=== PATIENT | female | born 1955 | race Caucasian/White ===

== ENCOUNTER 2017-08-02 08:02 | Outpatient (CLI) | payer BC ==
[2017-08-02] MEDS ORDERED: Iopamidol 370 76% 100 ML VIAL ONE (11:45)
--- NOTE | 2017-08-02 12:57 | CT ---
POSTCONTRAST SOFT TISSUE NECK CT: Date: 08/02/17 HISTORY: Throat pain x2 months. Hoarseness. Difficulty swallowing. COMPARISON: None. TECHNIQUE: Postcontrast soft tissue neck CT is performed in the axial plane. Reformatted images are submitted fo r interpretation. FINDINGS: Visualized brain parenchyma is unremarkable. There is adequate aeration of the visualized sinuses and mastoid air cells. Symmetric attenuation of the visualized muscles of mastication. Aerodigestive tract appears to be patent. There is mild fullness at the level of the left and right p alatine tonsil. There is mild narrowing of the airway. Obvious peritonsillar abscess is not appreciat ed. Epiglottis has a normal caliber. Preepiglottic fat is preserved. No masses in the oral cavity. Evaluation is limited by dental amalgam artifact. Midline fatty raphe o f the tongue is preserved. Supraglottic, glottic, and subglottic larynx is unremarkable. Symmetric attenuation of the sternocleidomastoid muscles. Symmetric attenuation of the parotid and submandibular glands. Scattered nonspecific, bilateral soft tissue neck lymph nodes. Thyroid gland is unremarkable. Grossly, the great vessels of the neck are patent. No prevertebral soft tissue swelling. Cervical spine vertebral body height is maintained. No fracture . No high grade central canal stenosis or high grade foraminal narrowing. Lung apices demonstrate chronic change. Upper mediastinum is unremarkable. IMPRESSION: Mild fullness of the left and right palatine tonsils, nonspecific. There is associated mild narrowing of the aerodigestive tract. Direct visualization is recommended. POS: [facility]
== END 2017-08-02 08:03 | disposition home or self-care (01) ==
LOC: CT 08:02
PROVIDERS: ATTEND Anesthesiology Pain Medicine
DX: K22.8 Other specified diseases of esophagus (principal); J35.8 Other chronic diseases of tonsils and adenoids
CPT/HCPCS: 70491

== ENCOUNTER 2017-08-24 06:59 | Emergency (ER) | payer BC ==
[2017-08-24] MEDS ORDERED: Dexamethasone 4 mg/ml Vial ONE (08:42)
--- NOTE | 2017-08-24 09:52 | RAD ---
RADIOGRAPH CHEST 2 VIEWS: Date: 08/24/17 Time: 1013 HOURS HISTORY: 61-year-old female with cough for 1 day. COMPARISON: None available. FINDINGS: The lungs are hypoinflated, which makes this a limited study. There is a questionable mild posterobas ilar left lower lobe infiltrate. No pleural effusion. Ectasia and tortuosity of thoracic aorta. Cardi ac size appears enlarged, but this could be in part due to the hypoinflation. The right lung and left upper lobe appear to be clear. No pneumothorax or pulmonary edema. There are dorsal column spinal co rd stimulator leads in the mid thoracic spine. IMPRESSION: 1. Limited study due to hypoinflated lungs. 2. Questionable left lower lobe infiltrate. 3. Dorsal column stimulator leads in thoracic spine. 4. Ectasia and tortuosity of the thoracic aorta. 5. Questionable mild cardiomegaly. JN [] POS: [facility]
== END 2017-08-24 10:11 | disposition home or self-care (01) ==
LOC: ERS 06:59
DX: J18.9 Pneumonia, unspecified organism (principal); J06.9 Acute upper respiratory infection, unspecified
CPT/HCPCS: 71046; 87081; 87430; 94640; J1100

== ENCOUNTER 2017-11-15 08:46 | Outpatient (CLI) | payer BC | END 2017-11-15 08:47 | disposition home or self-care (01) | LOC: BICCT 08:46 | PROVIDERS: ATTEND Anesthesiology Pain Medicine | DX: M48.02 Spinal stenosis, cervical region (principal); M47.892 Other spondylosis, cervical region | CPT/HCPCS: 72125 ==

== ENCOUNTER 2018-05-09 09:44 | Outpatient (CLI) | payer BC | END 2018-05-09 09:45 | disposition home or self-care (01) | LOC: DTY/OP 09:44 | PROVIDERS: ATTEND Surgery | DX: E66.01 Morbid (severe) obesity due to excess calories (principal) | CPT/HCPCS: 97802 ==

== ENCOUNTER 2018-07-18 11:21 | Outpatient (CLI) | payer BC, OTHER ==
[2018-07-18 12:13] LABS: #Basophils 0.1 thou/uL (0.0-0.2); #Eosinphils 0.2 thou/uL (0.0-0.7); #Lymphocytes 1.3 thou/uL (1.20-3.40); #Monocytes 0.4 thou/uL (0.11-0.59); #Neutrophils 2.3 thou/uL (1.40-6.50); %Basophils 1.9 % (0.0-1.0); %Eosinophils 3.8 % (0.0-10.0); %Lymphocytes 30.5 % (21.0-51.0); %Monocytes 8.8 % (0.0-10.0); Hemoglobin 15.3 g/dL (12.0-16.0); Mean Corpuscular HGB CONC 34.3 g/dL (32.0-36.0); Mean Corpuscular Volume 96.2 fL (78.0-98.0); Mean Platelet Volume 8.2 fL (7.4-10.4); Platelet Count 278 thou/uL (130-400); RBC Distribution Width 11.6 % (11.5-14.5); Red Blood Cell (RBC) Count 4.62 mill/uL (4.20-5.40); White Blood Cell (WBC) Count 4.3 thou/uL (4.8-10.8)
[2018-07-18 12:39] LABS: ALT (SGPT) 43 U/L (8-55); AST (SGOT) 33 U/L (5-34); Albumin 4.6 g/dL (3.5-5.0); Alkaline Phosphatase 90 U/L (40-150); Anion Gap 9 mmol/L (10-20); BUN (Urea Nitrogen) 16 mg/dL (9.8-20.1); Bilirubin, Direct 0.5 mg/dL (0.1-0.3); Bilirubin, Total 1.5 mg/dL (0.2-1.2); Calc. Creatinine Clearance 0 mL/min (70-130); Calcium 10.1 mg/dL (7.8-10.44); Carbon Dioxide 31 mmol/L (22-29); Chloride 106 mmol/L (98-107); Estimated GFR-MDRD 78; Globulin 2.5 g/dL (2.4-3.5); Glucose 91 mg/dL (70-105); Potassium 3.6 mmol/L (3.5-5.1); Protein, Total 7.1 g/dL (6.0-8.3); Sodium 142 mmol/L (136-145)
--- NOTE | 2018-07-18 13:17 | RAD ---
CHEST TWO VIEWS: HISTORY: Preoperative chest radiograph prior to surgical intervention. COMPARISON: 08/24/2017 TECHNIQUE: PA and lateral views of the chest are obtained. FINDINGS: Two views of the chest demonstrate a dorsal column stimulator in place. There is a calcified density in the right upper quadrant of the abdomen, possibly representing a larg e gallstone. The lungs are well aerated. No evidence of active intrathoracic disease is seen. No evidence of eff usions, pneumonia, or pneumothorax is seen. IMPRESSION: Unremarkable two views chest. POS: [facility]
--- NOTE | 2018-07-19 22:00 | EKG ---
Test Reason : Blood Pressure : / mmHG Vent. Rate : 052 BPM Atrial Rate : 052 BPM P-R Int : 188 ms QRS Dur : 080 ms QT Int : 440 ms P-R-T Axes : 044 083 040 degrees QTc Int : 409 ms Sinus bradycardia Nonspecific T wave abnormality Abnormal ECG When compared with ECG of 09-NOV-2010 12:30, Questionable change in QRS axis Nonspecific T wave abnormality has replaced inverted T waves in Inferior leads Confirmed by Meeta ROD ([id number]) on 07/19/2018 9:59:47 PM Referred By: TONY Confirmed By:Meeta ROD
== END 2018-07-18 11:22 | disposition home or self-care (01) ==
LOC: LABBT 11:21
PROVIDERS: ATTEND Surgery
DX: Z01.818 Encounter for other preprocedural examination (principal); K80.20 Calculus of gallbladder without cholecystitis without obstruction; E66.01 Morbid (severe) obesity due to excess calories
CPT/HCPCS: 71046; 80053; 80076; 85025; 93005; 93010

== ENCOUNTER 2018-07-27 06:43 | Inpatient (IN) | payer BC, OTHER ==
[2018-07-18 11:25] VITALS: BMI 37.3
[2018-07-27] MEDS ORDERED: Heparin 5,000 UNITS/ML VIAL ONE (08:40)
[2018-07-27] MEDS ORDERED: CEFAZOLIN 2 GM/50 ML BAG ONE (08:40)
[2018-07-27] MEDS ORDERED: PROPOFOL 200 MG/20 ML VIAL ONE (09:50)
[2018-07-27] MEDS ORDERED: Lidocaine 1% PF 5 ML VIAL ONE (09:50)
[2018-07-27] MEDS ORDERED: ePHEDrine/0.9% NaCl/PF SYRINGE 50 mg/10 ml ONE (09:50)
[2018-07-27] MEDS ORDERED: Glycopyrrolate 0.2 MG/ML 5 ML SYRINGE ONE (09:50)
[2018-07-27] MEDS ORDERED: Ketorolac Tromethamine 30 MG/ML VIAL ONE (09:50)
[2018-07-27] MEDS ORDERED: Dexamethasone 20 MG/5 ML VIAL ONE (09:50)
[2018-07-27] MEDS ORDERED: Metoclopramide HCl 10 MG/2 ML VIAL ONE (09:50)
[2018-07-27] MEDS ORDERED: Ondansetron PF 4 MG/2 ML Vial ONE (09:50)
[2018-07-27] MEDS ORDERED: Bupivacaine/Epinephrine 0.25% 30 ML VIAL ONE (09:51)
[2018-07-27] MEDS ORDERED: Midazolam HCl 2 mg/2 ml Vial ONE (09:52)
[2018-07-27] MEDS ORDERED: Fentanyl 100 MCG/2 ML VIAL ONE (09:55)
[2018-07-27] MEDS ORDERED: Iothalamate Meglumine 60% 50 ML VIAL FS ONE (09:56)
[2018-07-27] MEDS ORDERED: Promethazine HCl 25 MG/ML VIAL SLOW IVP PRN (10:43)
[2018-07-27] MEDS ORDERED: Promethazine HCl 25 MG/ML VIAL IM PRN ×3 (10:43→11:39)
[2018-07-27] MEDS ORDERED: Ondansetron HCl/PF 4 MG/2 ML Vial IVP PRN (10:43)
[2018-07-27] MEDS ORDERED: Naloxone HCl 0.4 mg/ml Vial IV PRN (10:44)
[2018-07-27] MEDS ORDERED: Zolpidem Tartrate 5 MG TAB PO PRN (10:44)
[2018-07-27] MEDS ORDERED: HYDROmorphone 10 mg/100 ml CADD IVPB PRN (10:44)
[2018-07-27] MEDS ORDERED: diphenhydrAMINE 50 MG/ML VIAL IVP PRN ×2 (10:44→11:39)
[2018-07-27] MEDS ORDERED: diphenhydrAMINE 25 MG CAP PO PRN (10:44)
[2018-07-27] MEDS ORDERED: diphenhydrAMINE 50 MG/ML VIAL IM PRN (10:44)
[2018-07-27] MEDS ORDERED: Ondansetron PF 4 MG/2 ML Vial IVP PRN ×2 (10:44→11:39)
[2018-07-27] MEDS ORDERED: Communication Order-Pharmacy FS SCH (10:45)
[2018-07-27] MEDS ORDERED: Dextrose 50% Abboject 50 ML SYRINGE SLOW IVP PRN (11:39)
[2018-07-27] MEDS ORDERED: Dextrose 5% in Water 1,000 ML IV PRN (11:39)
[2018-07-27] MEDS ORDERED: hydrALAZINE 20 MG/ML VIAL SLOW IVP PRN (11:39)
[2018-07-27] MEDS ORDERED: CEFAZOLIN/Water 2 GM/20 ML SYRINGE SLOW IVP SCH (11:45)
--- NOTE | 2018-07-27 12:56 | RAD ---
INTRAOPERATIVE CHOLANGIOGRAM: DATE: 07/27/2018. COMPARISON: None. HISTORY: Cholecystectomy. FINDINGS: Two intraoperative images are provided. Images demonstrate contrast media within the duodenum. Ther e is also contrast media within the common bile duct and intrahepatic biliary ducts in the region of the hilum. No filling defect is seen within the opacified portion of the common bile duct. Distalmo st aspect of CBD is not opacified. IMPRESSION: No filling defect seen within the opacified biliary ducts. POS: [facility]
[2018-07-27] MEDS: Ketorolac Tromethamine 30 MG/ML VIAL IVP SCH ×2 (13:29→17:01)
[2018-07-27] MEDS: D5 1/2 NS w/20 mEq KCL 1,000 ML IV SCH ×2 (13:29→17:01)
[2018-07-27] MEDS: CEFAZOLIN 2 GM/50 ML-DEXTROSE 2 GM in Premix Bag 1 BAG IVPB SCH (17:01)
[2018-07-28] MEDS: Ketorolac Tromethamine 30 MG/ML VIAL IVP SCH ×3 (01:07→12:31)
[2018-07-28] MEDS: CEFAZOLIN 2 GM/50 ML-DEXTROSE 2 GM in Premix Bag 1 BAG IVPB SCH (01:08)
--- NOTE | 2018-07-28 03:50 | OP ---
DATE OF PROCEDURE: 07/27/2018 PREOPERATIVE DIAGNOSES: Morbid obesity, symptomatic cholelithiasis with elevated bilirubin. PROCEDURES PERFORMED: Laparoscopic cholecystectomy with intraoperative cholangiogram, laparoscopic sleeve gastrectomy, and esophagogastroscopy. INDICATIONS: This is a 62-year-old female, who is morbidly obese, who has also been having episodic right upper quadrant pain. Ultrasound showed cholelithiasis and her bilirubin was mildly elevated. FINDINGS: She had a single large gallstone. Cholangiogram was negative. A 38-Martiniquais bougie was used for the sleeve procedure. PROCEDURE IN DETAIL: After informed consent was obtained, the patient was taken to the operating room and given general endotracheal anesthesia. She was placed in the supine position. Her abdomen was prepped and draped in the usual fashion. Local anesthesia was infiltrated subcutaneously and deep. A 12-mm incision was performed approximately 8 inches below the xiphoid slightly to the left. Veress needle was inserted. Drop test was performed. Pneumoperitoneum was created to a volume of 2 L of carbon dioxide. Utilizing a bladeless 12-mm trocar and 0-degree laparoscope, direct visual entry into the abdominal cavity was performed. Pneumoperitoneum was then created to a pressure of 15 mmHg, and the patient was placed in steep reverse Trendelenburg position. Syed liver retractor was inserted. The left lobe of the liver was retracted superiorly. The pylorus was identified. A 12-mm port was placed on the right beneath it and two 12s placed left subcostal. The omentum was taken off the greater curvature 5 cm from the pylorus utilizing the LigaSure. Short gastrics were divided with a LigaSure LigaSure. A 38-Martiniquais bougie was inserted and directed into the antrum. The linear 60 mm green load stapler was used to divide the antrum to the bougie, gold load along the bougie, and a series of blue through the angle of His. At this point, two 5-mm ports were placed subcostally. The gallbladder was grasped and advanced superiorly. The peritoneum was dissected off the cystic duct and artery. A clip was placed at the base of the cystic duct. Arrow cholangiocatheter was inserted. Intraoperative cholangiogram was performed. This showed free flow into the duodenum. No filling defects. The duct was triply ligated with hemoclips and divided. The artery was triply ligated with hemoclips and divided. The gallbladder was removed from its fossa utilizing electrocautery. At this point, intraoperative endoscopy was performed. The video endoscope was inserted under direct vision and advanced into the sleeve. The staple line was inspected, there was no bleeding. Staple line was then tested by inflating the stomach with pressurized air into water, there was no air leak. Stomach was decompressed. Scope was removed. The remnants of the stomach and the gallbladder were removed from the left lateral port site. The fascia was closed with 0 Vicryl suture and the GraNee needle. Trocars and retractors were removed. The skin was closed with interrupted 4-0 Rapide. Dermabond was applied. The patient tolerated the procedure well and was transferred to recovery in good condition. Sponge and needle count were verified correct x2. Job ID: [id number]
[2018-07-28] MEDS: D5 1/2 NS w/20 mEq KCL 1,000 ML IV SCH ×2 (04:21→12:31)
[2018-07-28 06:36] LABS: #Lymphocytes 1.2 thou/uL (1.20-3.40); #Monocytes 0.6 thou/uL (0.11-0.59); #Neutrophils 5.4 thou/uL (1.40-6.50); %Basophils 0.5 % (0.0-1.0); %Eosinophils 0.3 % (0.0-10.0); %Lymphocytes 16.8 % (21.0-51.0); %Monocytes 7.8 % (0.0-10.0); %Neutrophils 74.6 % (42.0-75.0); Hemoglobin 13.1 g/dL (12.0-16.0); Mean Corpuscular HGB CONC 34.3 g/dL (32.0-36.0); Mean Corpuscular Hemoglobin 33.3 pg (27.0-31.0); Mean Platelet Volume 8.4 fL (7.4-10.4); Platelet Count 228 thou/uL (130-400); RBC Distribution Width 11.4 % (11.5-14.5); Red Blood Cell (RBC) Count 3.94 mill/uL (4.20-5.40); White Blood Cell (WBC) Count 7.3 thou/uL (4.8-10.8)
[2018-07-28 06:55] LABS: Anion Gap 8 mmol/L (10-20); BUN (Urea Nitrogen) 8 mg/dL (9.8-20.1); Calc. Creatinine Clearance 117 mL/min (70-130); Carbon Dioxide 27 mmol/L (22-29); Chloride 107 mmol/L (98-107); Estimated GFR-MDRD 85; Glucose 139 mg/dL (70-105); Potassium 3.7 mmol/L (3.5-5.1); Sodium 138 mmol/L (136-145)
--- NOTE | 2018-07-28 08:54 | RAD ---
LIMITED UPPER GI WITH 15 ML SINGLE SIP GASTROGRAFIN: HISTORY: Postop vertical sleeve gastrectomy and cholecystectomy. FINDINGS: There is prompt passage of the 15 mL oral Gastrografin administered under fluoroscopy from the esopha alivia into the stomach. No contrast extravasation is seen. IMPRESSION: No evidence of obstruction or leak. POS: [facility]
[2018-07-28] MEDS ORDERED: Enoxaparin Sodium 40 MG/0.4 ML SYRINGE SC SCH (09:00)
[2018-07-28] MEDS ORDERED: Pantoprazole 40 MG VIAL IVP SCH (09:00)
[2018-07-28] MEDS ORDERED: Hydrocodone-Acetamin 15 ML UDCUP PO PRN (11:39)
[2018-07-28 12:27] VITALS: BP 123/68; TEMP 97.7
--- NOTE | 2018-07-28 12:34 | DIS ---
DATE OF ADMISSION: 07/27/2018 DATE OF DISCHARGE: 07/28/2018 DISCHARGE DIAGNOSES: 1. Morbid obesity. 2. Symptomatic cholelithiasis. PROCEDURES DURING ADMISSION: 1. Laparoscopic cholecystectomy with intraoperative cholangiogram. 2. Sleeve gastrectomy. 3. Esophagogastroscopy. 4. Postoperative Gastrografin swallow. HOSPITAL COURSE: The patient was admitted and taken to the operating room, where she underwent a sleeve gastrectomy and laparoscopic cholecystectomy. Postoperatively, she has done well. She is tolerating liquids well. Her x-ray was fine. She was discharged home in good condition on hydrocodone and Zofran. She will follow up with me in 2 weeks. Job ID: [id number]
== END 2018-07-28 12:27 | disposition home or self-care (01) | DRG 621 ==
LOC: SDC 06:43 → SURG B 11:40
PROVIDERS: ADMIT Surgery; ATTEND Surgery
PROC: 0DB64Z3 Excision of Stomach, Percutaneous Endoscopic Approach, Vertical (ICD-10-PCS; principal; 2018-07-27)
PROC: 0FT44ZZ Resection of Gallbladder, Percutaneous Endoscopic Approach (ICD-10-PCS; 2018-07-27)
PROC: BF0CYZZ Plain Radiography of Hepatobiliary System, All using Other Contrast (ICD-10-PCS; 2018-07-27)
PROC: 0DJ68ZZ Inspection of Stomach, Via Natural or Artificial Opening Endoscopic (ICD-10-PCS; 2018-07-27)
PROC: BD12YZZ Fluoroscopy of Stomach using Other Contrast (ICD-10-PCS; 2018-07-28)
DX: E66.01 Morbid (severe) obesity due to excess calories (principal); K80.20 Calculus of gallbladder without cholecystitis without obstruction; Z68.37 Body mass index [BMI] 37.0-37.9, adult; I10 Essential (primary) hypertension; K21.9 Gastro-esophageal reflux disease without esophagitis; N32.81 Overactive bladder
CPT/HCPCS: 36415; 47532; 74241; 80048; 85025; 88304; 88307; 88312; 94760; C9113; J1100; J1644; J1650; J1885; J2001; J2250; J2405; J2704; J2765; J3010; Q9961

== ENCOUNTER 2019-02-01 09:46 | Outpatient (CLI) | payer BC ==
--- NOTE | 2019-02-01 10:07 | MMO ---
Bilateral MAMMO Bilat Screen [facility]. CLINICAL HISTORY: Patient is 63 years old and is seen for screening. The patient has the following family history of breast cancer: maternal aunt, 40's. The patient has no personal history of cancer. VIEWS: The views performed were: bilateral craniocaudal with tomosynthesis and bilateral mediolateral oblique with tomosynthesis. FILMS COMPARED: The present examination has been compared to prior imaging studies performed at [facility] on 01/11/2014, 02/13/2015, 03/03/2016 and 06/27/2017. MAMMOGRAM FINDINGS: There are scattered fibroglandular densities. There is a small focal density in the left upper outer breast. In the right breast, there are no suspicious masses, calcifications or areas of architectural distortion. IMPRESSION: FINDING IN THE LEFT BREAST REQUIRES ADDITIONAL EVALUATION. SPOT COMPRESSION IS RECOMMENDED. AN ULTRASOUND EXAM IS RECOMMENDED IF NEEDED. ADDITIONAL IMAGING. THE RESULTS OF THIS EXAM WERE SENT TO THE PATIENT. ACR BI-RADS Category 0 - Incomplete: Need additional imaging evaluation. [facility] will notify the patient of the need for additional imaging services. MAMMOGRAPHY NOTE: 1. A negative mammogram report should not delay a biopsy if a dominant of clinically suspicious mass is present. 2. Approximately 10% to 15% of breast cancers are not detected by mammography. 3. Adenosis and dense breasts may obscure an underlying neoplasm.
== END 2019-02-01 09:47 | disposition home or self-care (01) ==
LOC: BICMAMMO 09:46
PROVIDERS: ATTEND Family Medicine
DX: Z12.31 Encounter for screening mammogram for malignant neoplasm of breast (principal); Z80.3 Family history of malignant neoplasm of breast
CPT/HCPCS: 77063; 77067

== ENCOUNTER 2019-02-05 09:26 | Outpatient (CLI) | payer BC ==
--- NOTE | 2019-02-05 13:22 | MMO ---
Left Breast MAMMO Unilat Diag [facility]DI [facility]HELY. CLINICAL HISTORY: Patient is 63 years old and is seen for additional evaluation requested from prior study. The patient has the following family history of breast cancer: maternal aunt, 40's. The patient has no personal history of cancer. VIEWS: The views performed were: left craniocaudal spot compression with tomosynthesis; left mediolateral oblique spot compression with tomosynthesis; and left mediolateral with tomosynthesis. FILMS COMPARED: The present examination has been compared to prior imaging studies performed at [facility] on 02/13/2015, 03/03/2016, 06/27/2017 and 02/01/2019. MAMMOGRAM FINDINGS: There are scattered fibroglandular densities. Additional views were performed. The previously seen abnormality is not definitely seen on the current study. There are no suspicious masses, suspicious calcifications, or new areas of architectural distortion. IMPRESSION: THERE IS NO MAMMOGRAPHIC EVIDENCE OF MALIGNANCY. A ROUTINE FOLLOW-UP MAMMOGRAM IN 1 YEAR IS RECOMMENDED. THE RESULTS OF THIS EXAM WERE SENT TO THE PATIENT. ACR BI-RADS Category 2 - Benign finding MAMMOGRAPHY NOTE: 1. A negative mammogram report should not delay a biopsy if a dominant of clinically suspicious mass is present. 2. Approximately 10% to 15% of breast cancers are not detected by mammography. 3. Adenosis and dense breasts may obscure an underlying neoplasm.
== END 2019-02-05 09:27 | disposition home or self-care (01) ==
LOC: BICMAMMO 09:26
PROVIDERS: ATTEND Family Medicine
DX: R92.2 Inconclusive mammogram (principal); Z80.3 Family history of malignant neoplasm of breast
CPT/HCPCS: G0279

== ENCOUNTER 2019-07-24 06:38 | Day surgery (SDC) | payer BC ==
[2019-07-23 08:56] VITALS: BMI 28.7
[2019-07-24 07:34] VITALS: BP 149/77; TEMP 97.8
--- NOTE | 2019-07-24 09:54 | RAD ---
CERVICAL MYELOGRAM: HISTORY: Cervical stenosis. Neck pain. EXPOSURE: 0.6 minutes 132.1 microgray per m2 FINDINGS: Initial two view systems checkout mechanic lumbar spine radiograph demonstrates bilateral transpedicular screws at L5 and S1. There does appear to be perihardware lucency involving bilateral transpedicular screws at S1. There is a disc prosthesis. There is 4.3 mm of anterolisthesis of L5 upon S1. There is 4 mm of anter olisthesis of L4 upon L5. Dorsal column stimulator is partially better evaluated. Two view cervical spine: Predental space is normal. No prevertebral soft tissue swelling. Cervical sp ine vertebral body height is maintained. No fractures. Straightening of cervical lordosis may be positional. Successful lumbar puncture at the L3-L4 level. A total of 9 cc of Isovue-M 300 contrast was administe red intrathecally. No immediate post procedure complication. TECHNIQUE: Consent obtained to perform a lumbar puncture for intrathecal contrast administration. The patient's back was evaluated. The L3-L4 level was deemed appropriate. The skin was prepped and draped in a sterile fashion and 1% lidocaine buffered with sodium bicarbonate was used for local anesthesia. Unde r fluoroscopic guidance, a 22 gauge spinal needle was advanced into the CSF space and via a short tubing catheter a total of 9 mL of Isovue-M 300 contrast was administered intrathecally. The patient tolerated the procedure well. No immediate or post procedural complications. IMPRESSION: Successful lumbar puncture for cervical myelogram. Transcribed Date/Time: 07/24/2019 10:15 AM
--- NOTE | 2019-07-24 10:00 | CT ---
POST MYELOGRAM CERVICAL SPINE CT: HISTORY: Cervical spinal stenosis. Neck pain. COMPARISON: None. TECHNIQUE: Cervical spine CT is performed in the axial length. Three-dimensional reformatted images are submitte d. FINDINGS: Straightening of cervical lordosis is felt to be positional. No craniocervical dissociation. Cervical spine vertebral body height is maintained. No fracture. Appropriate alignment of the lateral masses of C1 and C2 as well as the facets. Intact odontoid process. Soft tissue neck structures are unremarkable. Upper mediastinum and lung apices do not demonstrate an y acute abnormality. Patchy ground glass opacities in the visualized lung parenchyma are nonspecific. C2-C3: Minimal central disc bulge. No significant central canal stenosis or significant neural forami nal narrowing. C3-C4: Broad-based disc bulge does make contact with the thecal sac and nearly effaces subarachnoid s pace centrally secondary to a focal disc protrusion. Mild central canal stenosis. Bilaterally the neural foramina are patent. C4-C5:Broad-based disc bulge abuts the thecal sac. Subarachnoid space is maintained. No significant c entral canal stenosis or significant neural foraminal narrowing. C5-C6: Small left paracentral disc bulge. Mild central canal stenosis. Bilaterally the neural foramin a are patent. C6-C7:Broad-based disc osteophyte complex without significant central canal stenosis. Right neural fo ramen is patent. Mild left foraminal narrowing due to uncovertebral hypertrophy. C7-T1: No significant canal stenosis or significant neural foraminal narrowing. IMPRESSION: Degenerative changes of the cervical spine as described above. No evidence of significant central can al stenosis or significant neural foraminal narrowing. Transcribed Date/Time: 07/24/2019 10:14 AM
[2019-07-24] MEDS ORDERED: Iopamidol-M 300 61% 15 ML VIAL ONE (11:10)
== END 2019-07-24 09:50 | disposition home or self-care (01) ==
LOC: RAD 06:38
PROVIDERS: ATTEND Anesthesiology Pain Medicine
PROC: B02B1ZZ Computerized Tomography (CT Scan) of Spinal Cord using Low Osmolar Contrast (ICD-10-PCS; principal; 2019-07-24)
DX: M48.02 Spinal stenosis, cervical region (principal); M47.22 Other spondylosis with radiculopathy, cervical region; M48.062 Spinal stenosis, lumbar region with neurogenic claudication; M43.17 Spondylolisthesis, lumbosacral region; I10 Essential (primary) hypertension; E78.5 Hyperlipidemia, unspecified; K21.9 Gastro-esophageal reflux disease without esophagitis; Z79.82 Long term (current) use of aspirin; Z79.899 Other long term (current) drug therapy; Z88.8 Allergy status to other drugs, medicaments and biological substances; Z91.040 Latex allergy status; Z91.048 Other nonmedicinal substance allergy status
CPT/HCPCS: 62302; 72126; Q9967

== ENCOUNTER 2020-03-20 08:41 | Outpatient (CLI) | payer BC ==
--- NOTE | 2020-03-20 09:16 | MMO ---
Bilateral MAMMO Bilat Screen [facility]. CLINICAL HISTORY: Patient is 64 years old and is seen for screening. The patient has the following family history of breast cancer: maternal aunt, 40's. The patient has no personal history of cancer. VIEWS: The views performed were: bilateral craniocaudal with tomosynthesis and bilateral mediolateral oblique with tomosynthesis. FILMS COMPARED: The present examination has been compared to prior imaging studies performed at [facility] on 03/03/2016, 06/27/2017, 02/01/2019 and 02/05/2019. This study has been interpreted with the assistance of computer-aided detection. MAMMOGRAM FINDINGS: There are scattered fibroglandular densities. There are no suspicious masses, suspicious calcifications, or new areas of architectural distortion. IMPRESSION: THERE IS NO MAMMOGRAPHIC EVIDENCE OF MALIGNANCY. A ROUTINE FOLLOW-UP MAMMOGRAM IN 1 YEAR IS RECOMMENDED. THE RESULTS OF THIS EXAM WERE SENT TO THE PATIENT. ACR BI-RADS Category 1 - Negative MAMMOGRAPHY NOTE: 1. A negative mammogram report should not delay a biopsy if a dominant of clinically suspicious mass is present. 2. Approximately 10% to 15% of breast cancers are not detected by mammography. 3. Adenosis and dense breasts may obscure an underlying neoplasm. Reported by: ADAMA FLORES MD Electonically Signed: [id number]
== END 2020-03-20 08:42 | disposition home or self-care (01) ==
LOC: BICMAMMO 08:41
PROVIDERS: ATTEND Family Medicine
DX: Z12.31 Encounter for screening mammogram for malignant neoplasm of breast (principal); Z80.3 Family history of malignant neoplasm of breast
CPT/HCPCS: 77063; 77067

== ENCOUNTER 2020-11-21 08:22 | Outpatient (CLI) | payer BC | END 2020-11-21 08:23 | disposition home or self-care (01) | LOC: BICMAMMO 08:22 | PROVIDERS: ATTEND Family Medicine | DX: N63.10 Unspecified lump in the right breast, unspecified quadrant (principal) ==

== ENCOUNTER 2021-06-03 15:24 | Outpatient (CLI) | payer BC | END 2021-06-03 15:25 | disposition home or self-care (01) | LOC: BICCT 15:24 | PROVIDERS: ATTEND Specialist | DX: R42 Dizziness and giddiness (principal); H91.8X2 Other specified hearing loss, left ear | CPT/HCPCS: 70480 ==

== ENCOUNTER 2022-03-17 07:50 | Outpatient (CLI) | payer BC | END 2022-03-17 07:51 | disposition home or self-care (01) | LOC: BICMAMMO 07:50 | PROVIDERS: ATTEND Family Medicine | DX: Z12.31 Encounter for screening mammogram for malignant neoplasm of breast (principal); Z80.3 Family history of malignant neoplasm of breast | CPT/HCPCS: 77063; 77067 ==

== ENCOUNTER 2024-10-05 07:55 | Outpatient (CLI) | payer MEDICARE, BC | END 2024-10-05 07:56 | disposition home or self-care (01) | LOC: BICMAMMO 07:55 | PROVIDERS: ATTEND Family Medicine | DX: N95.1 Menopausal and female climacteric states (principal); M81.0 Age-related osteoporosis without current pathological fracture; M85.852 Other specified disorders of bone density and structure, left thigh | CPT/HCPCS: 77080 ==

== ENCOUNTER 2025-06-26 07:20 | Day surgery (SDC) | payer MEDICARE, BC ==
[2025-06-26] MEDS ORDERED: Sodium Bicarbonate 2.5 MEQ/5 ML SDV ONE (07:36)
[2025-06-26] MEDS ORDERED: Iopamidol-M 200 41% 10 ML VIAL FS ONE (10:40)
== END 2025-06-26 12:05 | disposition home or self-care (01) ==
LOC: RAD 07:20 → EDSTATUS 08:00 → RAD 12:05
PROVIDERS: ATTEND Nurse Practitioner Family
DX: M48.062 Spinal stenosis, lumbar region with neurogenic claudication (principal)
CPT/HCPCS: 72132; 77002; Q9966